=== PATIENT | male | born 2000 | race African-American/Black ===

== ENCOUNTER 2021-06-05 18:29 | Emergency (ER) | payer SELFPAY ==
[~2021-06-05] VITALS: Ht 160 cm; Wt 70.0 kg
[2021-06-05 18:35] VITALS: BP 136/90
== END 2021-06-05 21:40 | disposition left against medical advice (07) ==
LOC: ER 18:29
DX: R07.89 Other chest pain (principal); R06.02 Shortness of breath; R20.0 Anesthesia of skin
CPT/HCPCS: 71045; 93005; 99283

== ENCOUNTER 2021-06-06 00:50 | Emergency (ER) | payer SELFPAY ==
[~2021-06-06] VITALS: Ht 160 cm; Wt 71.0 kg
[2021-06-06 01:59] VITALS: BP 126/80
== END 2021-06-06 02:00 | disposition home or self-care (01) ==
LOC: ER 00:50
DX: R07.89 Other chest pain (principal)
CPT/HCPCS: 93005; 99283